=== PATIENT | female | born 1960 | race Caucasian/White ===

== ENCOUNTER → 2017-02-08 | Day surgery (SDC) | payer OTHER ==
[~2017-02-08] MED LIST: BUPIVACAINE HCL PF 0.75% 30 ML VIAL ONE; CLINDAMYCIN PHOS 600 MG/4 ML VIAL ONE; EPINEPHrine HCL (1:1000) 30 MG/30 ML VIAL ONE; LACTATED RINGER'S 1000 ML INJ 1,000 ML ONE; LIDOCAINE 1.5%/EPINEPHrine 1:200,000 PF SOLN 30 ML AMP ONE; MIDAZOLAM HCL 2 MG/2 ML VIAL ONE; MIDAZOLAM HCL 5 MG/ML VIAL (1 ML) ONE; ONDANSETRON HCL 4 MG/2 ML VIAL IV PUSH ONE; PROPOFOL 100 MG/10 ML INJ IV ONE; SODIUM CHLORIDE 0.9% SOLN 100 ML BAG IV ONE
--- NOTE | 2017-02-11 08:53 | MP ---
cc: ZAK SILVA M.D. DATE OF SURGERY: 02/08/2017. PREOPERATIVE DIAGNOSIS: Right shoulder rotator cuff tear, superior labral tear, impingement. POSTOPERATIVE DIAGNOSIS: Right shoulder rotator cuff tear, superior labral tear, impingement. OPERATION: 1. Right shoulder extensive debridement of superior labral tear, anterior, superior and posterior. 2. Right shoulder arthroscopic rotator cuff repair. 3. Right shoulder subacromial decompression with partial acromioplasty. SURGEON: Zak Silva M.D. TOOL ROOM ATTENDANT: FAITH Yuen. NOTE: The surgical procedure was assisted by my Advanced Registered Nurse Practitioner. My AMMONIA OPERATOR presence was necessary throughout this case for the manipulation and positioning of the surgical extremity. My AMMONIA OPERATOR was assisting me throughout the duration of this procedure. The skill set of an Advance Registered Nurse Practitioner was medically necessary to complete this procedure. During the surgical case, the surgical supervisor was working at the back table and the Advance Registered Nurse Practitioner was directly assisting me. ESTIMATED BLOOD LOSS: Minimal. ANESTHESIA: Regional and general anesthesia. DESCRIPTION OF THE PROCEDURE IN DETAIL: The patient was brought back to the operative theater after regional anesthesia had been administered. She then had general anesthesia administered. She was placed into a lateral decubitus position and had an axillary roll with a well-padded down leg. She was placed into ten pounds of in-line traction. The right upper extremity was prepped and draped in the usual sterile fashion. The patient received intravenous clindamycin. I made standard posterior portal for a diagnostic arthroscopy followed by an anterior portal in the soft spot. We found that the humeral head had minimal chondromalacia. The glenoid had a small area of grade 1 chondromalacia noted centrally. The superior labrum had extensive tearing anteriorly, superiorly and posteriorly. The biceps tendon itself had about 10% of tendinosis. We found that the biceps tendon was located within the groove and when we manipulated it and brought it anteriorly, it popped back into the groove indicating that it did not have a significant amount of instability. We found significant tearing of the undersurface of the rotator cuff with significant thinning. This was in the area of the supraspinatus tendon. The subscapularis tendon was found to be intact. We used an oscillating shaver to debride the anterior portion of the labrum and then the superior portion of the labrum and then the posterior portion of the labrum. We tested the anchor point and found that there was no instability as far as detachment was concerned. Again, about 90% of the tendon looked like it was in very good condition; therefore, repair was not performed. We debrided the undersurface of the rotator cuff and decided to then go into the subacromial space to get a better look. We made another accessory portal laterally and we performed a bursectomy in the subacromial space as there was extensive bursitis. We found extensive tearing of the rotator cuff and we found significant thinning of the rotator cuff. We debrided all the thin torn edges and this ended up becoming a moderate to large tear, which was V-shaped in nature. We found that the anterior leaflet reduced back posteriorly and then the more anterior portion of the cuff would lay down on the area of the greater tuberosity in an anatomic position. We debrided the greater tuberosity using an oscillating shaver and also a rasp. We manipulated the cuff with the cuff grabber to help us decide on suture placement. We ended up using a modified suture bridge technique. We placed two medial corkscrew anchors for the anterior anchor. We placed two horizontal mattress stitches into the supraspinatus tendon. We then placed a posteromedial anchor for the first suture. We used this to create a conversion stitch between the anterior leaf and the posterior leaf and then the remaining suture we used in a horizontal mattress fashion on the posterior aspect of the cuff. We then tied all the sutures in standard arthroscopic knot tying technique and crisscrossed the sutures and laid these down to two individual Bio SwiveLocks. Overall we felt we had a very good repair of the tendon. The patient's arthroscopic portals were closed with 2-0 Vicryl followed by 3-0 nylon. The patient was placed into a sling and swathe. The postoperative plan is to follow standard rotator cuff repair protocol. MD INEZ Yee/CARMEN /2:40 PM /8:56 AM
== END | disposition home or self-care (01) ==
LOC: ESDC 09:27
PROVIDERS: ATTEND Orthopaedic Surgery
DX: M75.101 Unspecified rotator cuff tear or rupture of right shoulder, not specified as traumatic (principal); M75.41 Impingement syndrome of right shoulder
CPT/HCPCS: 01630; 01991; 29823; 29826; 29827; 64417; C1713; J0171; J2250; J2405; J7120